=== PATIENT | female | born 2000 | race Caucasian/White ===

== ENCOUNTER 2024-07-23 01:12 | Emergency (ER) | payer OTHER ==
[~2024-07-23] VITALS: Ht 165.1 cm; Wt 92.9 kg
[2024-07-23 02:05] VITALS: BP 139/61; PULSE 99; RESP 20; TEMP 97.2; O2SAT 99
[2024-07-23] MEDS ORDERED: ERY05OO OP (02:08)
[2024-07-23] MEDS: TETRACAINE HCL 0.5% OPTH(EYE) SOLN 4ML RIGHTEYE ONE (02:16)
[2024-07-23] MEDS: FLUORESCEIN SOD OPTH TEST STRIP RIGHTEYE ONE (02:16)
== END 2024-07-23 02:30 | disposition home or self-care (01) ==
LOC: ER 01:12 → EDBD 01:12 → ER 02:30
DX: T15.01XA Foreign body in cornea, right eye, initial encounter (principal); X58.XXXA Exposure to other specified factors, initial encounter; Y93.89 Activity, other specified; Y92.89 Other specified places as the place of occurrence of the external cause; Y99.8 Other external cause status